=== PATIENT | female | born 1975 | race Caucasian/White ===

== ENCOUNTER 2017-12-10 20:36 | Emergency (ER) | payer BC ==
--- NOTE | 2017-12-10 23:37 | ER Document Report ---
HPI - HPI Pain Level: 3 Context: Patient is a 42-year-old female comes emergency department for chief complaint of cough, congestion, ear pain, chills, and pain across her chest with coughing episodes for the past 5 days. She denies smoking, she states she gets bronchitis frequently, she also has seasonal allergies and takes Claritin. 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 She is new to the area. She states that right now she is okay but when she lies flat she cannot stop coughing and she cannot sleep. Past Medical History - General Information source: Patient - Social History Smoking Status: Never Smoker Drug Abuse: None Lives with: Alone Family History: Reviewed & Not Pertinent Psychiatric Medical History: Reports: Hx Anxiety Surgical Hx: Negative - Immunizations Immunizations up to date: Yes Hx Diphtheria, Pertussis, Tetanus Vaccination: Yes Vertical Provider Document - CONSTITUTIONAL General Appearance: WD/WN, No Apparent Distress - INFECTION CONTROL TRAVEL OUTSIDE OF THE [place] IN LAST 30 DAYS: No - HEENT HEENT: Atraumatic, Normocephalic. negative: Normal ENT Exam - Patient with mild sinus congestion, slightly dull tympanic membranes bilaterally, otherwise unremarkable ENT exam, Pharyngeal Exudate, Pharyngeal Tenderness, Pharyngeal Erythema - NECK Neck: Normal Inspection - RESPIRATORY Respiratory: Breath Sounds Normal, No Respiratory Distress, Other - Episodes of persistent cough - CARDIOVASCULAR Cardiovascular: Regular Rate, Regular Rhythm - GI/ABDOMEN Gastrointestinal: Abdomen Soft, Abdomen Non-Tender - MUSCULOSKELETAL/EXTREMETIES Musculoskeletal/Extremeties: MAEW, FROM, Non-Tender - NEURO Level of Consciousness: Awake, Alert, Appropriate - DERM Integumentary: Warm, Dry, No Rash Course - Re-evaluation Re-evalutation: EKG and chest x-ray are both unremarkable. Patient with persistent coughing episodes consistent with bronchitis but no decreased breath sounds, wheezing, respiratory distress, or abnormal vital signs. Discussed results with patient, treatment recommendations, follow-up, and return precautions. Patient states satisfaction and agreement. - Vital Signs Vital signs: Temp Pulse Resp BP Pulse Ox 98 F 67 18 119/52 L 100 12/10/17 21:16 12/10/17 21:16 12/10/17 21:16 12/10/17 21:16 12/10/17 21:16 Discharge - Discharge Clinical Impression: Cough, Chills, Sinus congestion Ear pain Qualifiers: Laterality: bilateral Qualified Code(s): H92.03 - Otalgia, bilateral Condition: Stable Disposition: HOME, SELF-CARE Additional Instructions: Your chest x-ray and EKG do not show any concerning abnormalities. Your examination is consistent with bronchitis. Take prednisone as prescribed, take azithromycin as prescribed, take Tessalon during the day for cough if needed, use the syrup at night for cough if needed. Take Tylenol or ibuprofen for chills or body aches. Drink plenty of fluids and rest. Follow-up with primary care. Return if you worsen including difficulty breathing, spiking fever, or any other concerning or worsening symptoms Prescriptions: Hydrocodone Bit/Homatropine [Hycodan Syrup 5-1.5 mg/5 ml Ud Cup] 5 ml PO Q4HP PRN #120 ml PRN Reason: Benzonatate [Tessalon Perle 100 mg Capsule] 100 mg PO Q8HP PRN #20 cap PRN Reason: Azithromycin [Zithromax 250 mg Tablet] 250 mg PO ASDIR PRN #4 tablet PRN Reason: Prednisone [Deltasone 10 mg Tablet] 10 mg PO ASDIR PRN #21 tablet PRN Reason: Forms: Return to Work Referrals: CELESTE CRAWLEY FNP [Primary Care Provider] - Follow up as needed
--- NOTE | 2017-12-11 01:01 | RADIOLOGY REPORT (SQ) ---
EXAM DESCRIPTION: CHEST PA/LAT CLINICAL HISTORY: 42 years, Female, productive cough COMPARISON: None. NUMBER OF VIEWS: 2 FINDINGS: Normal lung volume, clear parenchyma, normal cardiac silhouette, and intact bony thorax. IMPRESSION: No acute cardiopulmonary findings.
[2017-12-11] MEDS ORDERED: PREDNISONE 20 MG TABLET PO ONE (01:32)
[2017-12-11] MEDS ORDERED: AZITHROMYCIN 250 MG TABLET PO ONE (01:34)
[2017-12-11 02:26] VITALS: BP 104/53
--- NOTE | 2017-12-11 07:51 | EKG REPORT ---
SEVERITY:- BORDERLINE ECG - SINUS RHYTHM NONSPECIFIC ST-T CHANGES ANTEROSEPTAL LEADS : Confirmed by: Rodolfo Galvin MD 11-Dec-2017 07:50:35
== END 2017-12-11 02:00 | disposition home or self-care (01) ==
LOC: ER 20:36
DX: H92.03 Otalgia, bilateral (principal); R05 Cough; R68.83 Chills (without fever); R09.81 Nasal congestion; H92.09 Otalgia, unspecified ear; R07.9 Chest pain, unspecified; I10 Essential (primary) hypertension
CPT/HCPCS: 93005; 99284; 71046; 93010; J7512

== ENCOUNTER 2020-07-26 14:10 | Emergency (ER) | payer BC, OTHER ==
--- NOTE | 2020-07-26 15:01 | ER Document Report ---
ED Medical Screen (RME) - General Chief Complaint: Headache Stated Complaint: NAUSEA Time Seen by Provider: 07/26/20 14:53 Primary Care Provider: CELESTE CRAWLEY FNP [Primary Care Provider] - Follow up as needed Mode of Arrival: Ambulatory Information source: Patient Notes: 44-year-old female presents to ED for migraine headache that is lasted for 3 to 4 weeks. She states she is on aimovig injections monthly she is also on Phenergan daily Zofran daily twice a day and Maxalt none of these have helped she has quit taking the Maxalt due to low blood pressure. She states she has had a constant headache nausea and dizziness for the last 3 to 4 weeks. She states she cannot get into her doctor until September. She also has Lyme's disease asthma cardiomyopathy and anemia. She states she is just tired and weak and dizzy over time and she needs to know what is going on. He states her entry writer told her to come to the emergency room. I have greeted and performed a rapid initial assessment of this patient. A comprehensive ED assessment and evaluation of the patient, analysis of test results and completion of medical decision making process will be conducted by an additional ED providers. TRAVEL OUTSIDE OF THE [place] IN LAST 30 DAYS: No - Related Data Allergies/Adverse Reactions: No Known Allergies Allergy (Verified 07/26/20 14:50) Home Medications: doxycycline. rizatriptan. losartan. [id number]. zofran. phenergan Past Medical History - Social History Chew tobacco use (# tins/day): No Frequency of alcohol use: None Drug Abuse: None Renal/ Medical History: Denies: Hx Peritoneal Dialysis Psychiatric Medical History: Reports: Hx Anxiety - Immunizations Immunizations up to date: Yes Hx Diphtheria, Pertussis, Tetanus Vaccination: Yes Physical Exam - Vital signs Vitals: Temp Pulse Resp BP Pulse Ox 98.2 F 56 L 16 122/57 L 100 07/26/20 14:45 07/26/20 14:45 07/26/20 14:45 07/26/20 14:45 07/26/20 14:45 Course - Vital Signs Vital signs: Temp Pulse Resp BP Pulse Ox 98.2 F 56 L 16 122/57 L 100 07/26/20 14:50 07/26/20 14:45 07/26/20 14:45 07/26/20 14:45 07/26/20 14:45 Doctor's Discharge - Discharge Referrals: CELESTE CRAWLEY FNP [Primary Care Provider] - Follow up as needed
[2020-07-26 15:27] LABS: ABSOLUTE BASOPHILS # (AUTO) 0.1 10^3/uL (0.0-0.2); ABSOLUTE EOSINOPHILS # (AUTO) 0.1 10^3/uL (0.0-0.6); ABSOLUTE LYMPHOCYTES (AUTO) 2.1 10^3/uL (0.5-4.7); ABSOLUTE MONOCYTES (AUTO) 0.5 10^3/uL (0.1-1.4); ABSOLUTE NEUT (AUTO) 2.1 10^3/uL (1.7-8.2); BASOPHILS % (AUTO) 1.1 % (0-2); EOSINOPHILS % (AUTO) 1.1 % (0-6); HEMOGLOBIN 13.9 g/dL (12.0-15.5); LYMPHOCYTES % (AUTO) 43.1 % (13-45); MEAN CORPUSCULAR HEMOGLOBIN 28.9 pg (27.0-33.4); MEAN CORPUSCULAR HGB CONC 34.7 g/dL (32.0-36.0); MEAN CORPUSCULAR VOLUME 83 fl (80-97); MONOCYTES % (AUTO) 9.8 % (3-13); PLATELET COUNT 250 10^3/uL (150-450); RED BLOOD COUNT 4.82 10^6/uL (3.72-5.28); SEGMENTED NEUTROPHILS % (AUTO) 44.9 % (42-78); TOTAL CELLS COUNTED % (AUTO) 100 %; WHITE BLOOD COUNT 4.8 10^3/uL (4.0-10.5)
[2020-07-26 15:31] LABS: APPEARANCE,URINE CLEAR; BILIRUBIN,URINE NEGATIVE (NEGATIVE); COLOR,URINE YELLOW; GLUCOSE, URINE NEGATIVE (NEGATIVE); KETONES,URINE NEGATIVE (NEGATIVE); LEUKOCYTE ESTERASE,URINE NEGATIVE (NEGATIVE); NITRITE,URINE NEGATIVE (NEGATIVE); PROTEIN,URINE NEGATIVE (NEGATIVE); URINE SPECIFIC GRAVITY 1.014; UROBILINOGEN,URINE NEGATIVE mg/dL (<2.0)
[2020-07-26 15:49] LABS: ALBUMIN 4.2 g/dL (3.5-5.0); ALKALINE PHOSPHATASE 107 U/L (38-126); ANION GAP 10 (5-19); ASPARTATE AMINO TRANSFERASE 29 U/L (14-36); BILIRUBIN,DIRECT 0.1 mg/dL (0.0-0.4); BILIRUBIN,TOTAL 0.3 mg/dL (0.2-1.3); BLOOD UREA NITROGEN 11 mg/dL (7-20); CALCIUM 9.3 mg/dL (8.4-10.2); CARBON DIOXIDE 26 mmol/L (22-30); CHLORIDE 104 mmol/L (98-107); GLUCOSE 90 mg/dL (75-110); TOTAL PROTEIN 7.6 g/dL (6.3-8.2)
[2020-07-26] MEDS ORDERED: DIPHENHYDRAMINE HCL 50 MG/ML VIAL IV ONE (19:46)
[2020-07-26] MEDS ORDERED: METOCLOPRAMIDE HCL INJ/PF 10 MG/2 ML SDV IV ONE (19:46)
[2020-07-26] MEDS ORDERED: FENTANYL CITRATE INJ/PF 100 MCG/2 ML AMPUL IV ONE (19:47)
[2020-07-26] MEDS ORDERED: RINGERS SOLUTION,LACTATED 1,000 ML IV ONE (19:47)
--- NOTE | 2020-07-26 19:48 | ER Document Report ---
Entered by ROBERT ECHAVARRIA SCRIBE 07/26/201944 Acting as scribe for:GUERO ARREOLA, DO ED General - General Chief Complaint: Headache Stated Complaint: NAUSEA Time Seen by Provider: 07/26/20 14:53 Primary Care Provider: CELESTE CRAWLEY FNP [NURSE PRACTITIONER] - Follow up as needed Mode of Arrival: Ambulatory Information source: Patient Notes: This 45 year old female patient presents to the emergency department today with complaints of a migraine headache for about the last month. Patient has a history of migraine headaches and is followed by neurology which she states she has reached out to but mentions that they cannot see her until September. She complains of nausea that is not responding to the Phenergan and Zofran that she is prescribed. Patient states she has felt lightheaded when she stands up occasionally. Patient denies any fevers. TRAVEL OUTSIDE OF THE [place] IN LAST 30 DAYS: No - Related Data Allergies/Adverse Reactions: No Known Allergies Allergy (Verified 07/26/20 14:50) Home Medications: doxycycline. rizatriptan. losartan. [id number]. zofran. phenergan Past Medical History - General Information source: Patient - Social History Smoking Status: Never Smoker Cigarette use (# per day): No Chew tobacco use (# tins/day): No Frequency of alcohol use: None Drug Abuse: None Lives with: Family Family History: Reviewed & Not Pertinent Patient has homicidal ideation: No Psychiatric Medical History: Reports: Hx Anxiety Surgical Hx: Negative - Immunizations Immunizations up to date: Yes Hx Diphtheria, Pertussis, Tetanus Vaccination: Yes Review of Systems - Review of Systems Constitutional: No symptoms reported EENT: No symptoms reported Cardiovascular: See HPI, Lightheaded Respiratory: No symptoms reported Gastrointestinal: See HPI, Nausea Genitourinary: No symptoms reported Female Genitourinary: No symptoms reported Musculoskeletal: No symptoms reported Skin: No symptoms reported Hematologic/Lymphatic: No symptoms reported Neurological/Psychological: See HPI, Headaches -: Yes All other systems reviewed and negative Physical Exam - Vital signs Vitals: Temp Pulse Resp BP Pulse Ox 98.2 F 56 L 16 122/57 L 100 07/26/20 14:45 07/26/20 14:45 07/26/20 14:45 07/26/20 14:45 07/26/20 14:45 - Notes Notes: Physical Exam: General: Alert, appears well. HEENT: Normocephalic. Atraumatic. PERRL. Extraocular movements intact. Orop harynx clear. Neck: Supple. Non-tender. Respiratory: No respiratory distress. Clear and equal breath sounds bilaterally. Cardiovascular: Regular rate and rhythm. Abdominal: Normal Inspection. Non-tender. No distension. Normal Bowel Sounds. Back: No gross abnormalities. Extremities: Moves all four extremities. Upper extremities: Normal inspection. Normal ROM. Lower extremities: Normal inspection. No edema. Normal ROM. Neurological: Normal cognition. AAOx4. Normal speech. Psychological: Normal affect. Normal Mood. Skin: Warm. Dry. Normal color. 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 She is better here after treatment and has local follow up. No fever or chills or rash. - Vital Signs Vital signs: Temp Pulse Resp BP Pulse Ox 98.2 F 56 L 16 122/57 L 100 07/26/20 14:50 07/26/20 14:45 07/26/20 14:45 07/26/20 14:45 07/26/20 14:45 - Laboratory Result Diagrams: 07/26/20 15:07 07/26/20 15:07 Laboratory results interpreted by me: 07/26/20 15:07 Urine Blood MODERATE H - Diagnostic Test Radiology reviewed: Image reviewed, Reports reviewed Discharge - Discharge Clinical Impression: Headache Qualifiers: Headache type: unspecified Headache chronicity pattern: chronic headache Intractability: not intractable Qualified Code(s): R51.9 - Headache, unspecif ied; G89.29 - Other chronic pain Condition: Stable Disposition: HOME, SELF-CARE Instructions: Antinausea Medication ([facility]), Headache ([facility]), Reglan ([facility]) Additional Instructions: See your doctor in follow up. Take your medicine as directed. Please return here for increased pain, persistent vomiting, other problems or concerns. Your cat scan here looks normal. Referrals: CELESTE CRAWLEY FNP [NURSE PRACTITIONER] - Follow up as needed I personally performed the services described in the documentation, reviewed and edited the documentation which was dictated to the scribe in my presence, and it accurately records my words and actions.
--- NOTE | 2020-07-26 21:43 | RADIOLOGY REPORT (SQ) ---
CT HEAD WITHOUT IV CONTRAST CLINICAL STATEMENT: butcher TECHNIQUE: Axial CT images from skull base to vertex without IV contrast. This exam was performed according to our departmental dose optimization program, and includes the following measures where applicable: automated exposure control, adjustment of the mAs and/or kVp according to patient size and/or exam, and an iterative reconstruction algorithm. COMPARISON: None. FINDINGS: There is no acute intracranial hemorrhage, mass, mass effect or abnormal extra-axial fluid collection. No evidence of an acute territorial infarct is identified. The ventricles are normal. Calvaria: The skull base and calvaria demonstrate no abnormality. In the soft tissues anterior to the left fore head is a 13 mm soft tissue nodule which is partially ossified. This may represent a large sebaceous cyst. Paranasal sinuses: Visualized portions of the orbits and paranasal sinuses are unremarkable. skull base: Unremarkable IMPRESSION: No acute intracranial abnormality.
[2020-07-26 23:09] VITALS: BP 111/58
--- OUTSIDE RECORDS SUMMARY | 2020-07-28 14:46 | XMS REPORT ---
:1975 Author Organization Replaced by [facility] Address [address] [place] [address] Care Team Providers Name Role Phone Du Rosas Primary Care Physician Unavailable Diony LAM Attending Clinician Unavailable Darwin Rosas MD Attending Clinician Unavailable MD Sánchez Garner Attending Clinician Unavailable MD Sánchez Garner Attending Clinician Unavailable MD Sánchez Garner Admitting Clinician Unavailable Allergies, Adverse Reactions, Alerts This patient has no known allergies or adverse reactions. Medications Ordered Filled Start Stop Current Ordering Indication Dosage Frequency Signature Comments Components Medication Medication Date Date Medication? Clinician (SIG) Name Name Doxycycline 2019-09 Yes Du Granados Q12H Doxycycli n Hyclate 100 1-02 Alison e Hyclate MG Oral 00:00: 100 MG Capsule 00 Oral Capsule TAKE 1 CAPSULE EVERY 12 HOURS UNTIL GONE. Quantity: 20 Refills: 0 Du Rosas MD Start : 17-Jul-2020 Active Butalbital- 2019- Yes Du Whaley l APAP-Caffei 0-16 Alison -APAP-Caf f ne 12:08: MD robbins 50-325-40 44 50-325-40 MG Oral MG Oral Tablet Tablet TAKE 1 TABLET BY MOUTH TWICE A DAY. DOSE DECREASE Quantity: 40 Refills: 0 Du Rosas MD Start : 0Active Ondansetron 2019-0 Yes Du Granados Ondansetr o 4 MG Oral 05-16 Alison n 4 MG Tablet 14:43: Oral Disintegrat 08 Tablet ing Disintegra ting TAKE 1 TABLET EVERY 8 hours as needed for nausea Quantity: 9 Refills: 3 Du Rosas MD Start : 16-May-2020 Active Pantoprazol 2019-0 Yes Richard Pantoprazo e Sodium 40 8-18 Garramone le Sodium MG Oral 14:20: D.O. 40 MG Oral Tablet 43 Tablet Delayed Delayed Release Release TAKE 1 TABLET BY MOUTH EVERY DAY Quantity: 90 Refills: 1 Garramone D.O. Richard Start : 0Active Butalbital- 2020-0 No Du Granados Q0.5D Butalbita l APAP-Caffei 7-27 Aliosn -APAP-Caf f ne 07:40: MD robbins 50-325-40 07 50-325-40 MG Oral MG Oral Tablet Tablet TAKE 1 TABLET BY MOUTH TWICE A DAY. DOSE DECREASE Quantity: 40 Refills: 0 Du Rosas MD Start : 0Active Pantoprazol 2019-0 No Richard Pantoprazo e Sodium 40 4-20 Garramone le Sodium MG Oral 13:58: D.O. 40 MG Oral Tablet 49 Tablet Delayed Delayed Release Release Take one by mouth daily Quantity: 30 Refills: 5 Garramone D.O.Alinkar Start : 0Active levoFLOXaci 2020-0 Yes Du Granados 1 Q0.5D levoFLOXa c n 500 MG 4-15 Towarnicky in 500 MG Oral Tablet 00:00: Oral 00 Tablet TAKE 1 TABLET TWICE DAILY Quantity: 14 Refills: 0 Du Rosas MD Start : 0Active Carvedilol 2020-0 Yes Du Granados Q0.5D Carvedilol 12.5 MG 2-18 Towarnicky 12.5 MG Oral Tablet 08:44: Oral 00 Tablet TAKE 1/2 BY MOUTH TWICE EVERY DAY Quantity: 90 Refills: 3 Du Rosas MD Start : 0Active Levothyroxi 2020-0 Yes Du Granados Levothyro x ne Sodium 2-18 Alison ine Sodium 25 MCG Oral 08:43: 25 MCG Tablet 26 Oral Tablet TAKE 1 TABLET BY MOUTH EVERY DAY Quantity: 90 Refills: 3 Du Rosas MD Start : 0Active Ondansetron 2019-0 No Du Granados 1 Ondansetr o 4 MG Oral 5-13 Towarnicky n 4 MG Tablet 11:31: Oral Disintegrat 43 Tablet ing Disintegra ting TAKE 1 TABLET EVERY 8 hours as needed for nausea Quantity: 30 Refills: 0 uD Rosas MD Start : 9Active Aimovig 140 Yes Mehdi Aimovig MG/ML - Diony LAM 140 MG/ML Subcutaneou 00:00: Subcutaneo s Solution 00 us Auto-inject Solution or Auto-injec tor 1 injection per month Quantity: 3 Refills: 1 Mehdi Vora MD Start : 9Active Milliliter Escitalopra Yes Du Granados Escitalop r m Oxalate - Alison monroy Oxalate 20 MG Oral 00:00: 20 MG Oral Tablet 00 Tablet TAKE 1 TABLET BY MOUTH EVERY DAY (REPLACE S BUSPAR AND ZOLOFT) Quantity: 90 Refills: 3 Du Rosas MD Start : 9Active Rizatriptan 2017-09 Yes Mehdi Rizatripta Benzoate 10 2- Diony abarca Benzoat e MG Oral 00:00: 10 MG Oral Tablet 00 Tablet TAKE 1 TABLET WITH HEADACHE ONSET, CAN REPEAT IN 2 HOURS TIME ONE. DO NOT EXCEED TWO PILLS IN 24 HOURS Quantity: 12 Refills: 5 Mehdi Vora MD Start : 8Active Promethazin 2017-09 Yes Mehdi Promethazi e HCl - 25 2- Diony stauffer HCl - MG Oral 00:00: 25 MG Oral Tablet 00 Tablet Take 1 tablet every 6 hours prn for CLEMONS/nausea Quantity: 60 Refills: 5 Mehdi Vora MD Start : 8Active Incruse Yes Irma Incruse Ellipta 04-02 George BRIDGES Ellipta 62.5 00:00: 62.5 MCG/INH 00 MCG/INH Inhalation Inhalation Aerosol Aerosol Powder Powder Breath Breath Activated Activated USE 1 INHALATION ONCE DAILY, NEEDED Refills: 1 Irma Saenz Start : 8Active 7 Each Pack Butalbital- No Du mix APAP-Caffei 03-27 Alison -ALDO-Caf f ne 00:00: MD robbins 50-325-40 00 50-325-40 MG Oral MG Oral Tablet Tablet TAKE 1 TABLET BY MOUTH TWICE A DAY. DOSE DECREASE Quantity: 40 Refills: 0 Du Rosas MD Start : 8Active Losartan No Du Granados 1 QD Losartan Potassium 5-24 Towarnicky Potassium 25 MG Oral 00:00: 25 MG Oral Tablet 00 Tablet TAKE 1 TABLET DAILY. Quantity: 90 Refills: 3 Du Rosas MD Start : 8Active ProAir HFA Yes Irma ProAir HFA 108 (90 5-24 George BRIDGES 108 (90 Base) 00:00: Base) MCG/ACT 00 MCG/ACT Inhalation Inhalation Aerosol Aerosol Solution Solution INHALE 1-2 PUFFS EVERY 4-6 HOURS NEEDED AND DIRECTED. Quantity: 1 Refills: 3 Irma Saenz Start : 8Active 8.5 GM Inhaler Losartan Yes Du Granados 1 QD Losartan Potassium 5-24 Towavanicky Potassium 25 MG Oral 00:00: 25 MG Oral Tablet 00 Tablet TAKE 1 TABLET DAILY. Quantity: 90 Refills: 3 Du Rosas MD Start : 8Active Problems Condition Condition Condition Status Onset Resolution Last Treatin g Comments Name Details Category Date Date Treatment Clinician Date Abnormal Abnormal Problem Active urine urine findings findings Microscopic Microscopic Problem Active hematuria hematuria Urinary Urinary Problem Active symptom or symptom or sign sign Encounter Encounter Problem Active for routine for routine gynecologic gynecologic al al examination examination with with Papanicolao Papanicolao u smear of u smear of cervix cervix Migraines Migraines Problem Active Screening Screening Problem Active for for cervical cervical cancer cancer Anxiety Anxiety Problem Active Anemia Anemia Problem Active Asthma Asthma Problem Active Cardiomyopa Cardiomyopa Problem Active thy in thy in diseases diseases classified classified elsewhere elsewhere Iron Iron Problem Active deficiency deficiency anemia anemia Gastric Gastric Problem Active ulcer ulcer Ear ache Ear ache Problem Active Procedures Procedure Date / Time Performed Performing Clinician Mariec e History of Sinus surgery History of section History of Colonoscopy History of Endoscopy Results This patient has no known results. Assessments Condition Name Status Diagnosis Date Treating Clinici an Migraines Active Microscopic hematuria Active Iron deficiency anemia Active Gastric ulcer Active Cardiomyopath in other disease Active Asthma Active Abnormal urine findings Active Abnormal urine findings Active Encounter for preventive health examination Active Urinary symptom or sign Active Lyme disease Active Anemia Active Migraines Active Microscopic hematuria Active Iron deficiency anemia Active Gastric ulcer Active Cardiomyopath in other disease Active Asthma Active Abnormal urine findings Active Encounter for preventive health examination Active Urinary symptom or sign Active Lyme disease Active Anemia Active Anxiety Active Migraines Active Microscopic hematuria Active Iron deficiency anemia Active Gastric ulcer Active Cardiomyopath in other disease Active Asthma Active Viral upper respiratory tract infection with Active cough Abnormal urine findings Active Encounter for preventive health examination Active Urinary symptom or sign Active Viral upper respiratory tract infection with Active cough Lyme disease Active Anemia Active Anxiety Active Migraines Active Microscopic hematuria Active Iron deficiency anemia Active Gastric ulcer Active Cardiomyopath in other disease Active Asthma Active Anemia Active Anxiety Active Iron deficiency anemia Active Gastric ulcer Active Asthma Active Cardiomyopathy in diseases classified Active elsewhere Gastric ulcer Active Anemia Active Anxiety Active Migraines Active Iron deficiency anemia Active Anemia Active Anxiety Active Iron deficiency anemia Active Gastric ulcer Active Asthma Active Encounter for routine gynecological Active examination with Papanicolaou smear of cervix Anemia Active Iron deficiency anemia Active Gastric ulcer Active Asthma Active Cardiomyopathy in diseases classified Active elsewhere Anemia Active Encounter for preventive health examination Active Urinary symptom or sign Active History of chest pain Active History of shortness of breath Active Lyme disease Active 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 Encounter for preventive health examination Active Urinary symptom or sign Active Lyme disease Active Shortness of breath Active Migraines Active Microscopic hematuria Active Iron deficiency anemia Active Gastric ulcer Active Chest pain Active Cardiomyopath in other disease Active Asthma Active Asthma Active Encounter for preventive health examination Active Urinary symptom or sign Active Lyme disease Active Shortness of breath Active Migraines Active Microscopic hematuria Active Iron deficiency anemia Active Gastric ulcer Active Chest pain Active Cardiomyopath in other disease Active Malignant neoplasm of unspecified part of Active SYSTEM left bronchus or lung Shortness of breath Active Chest pain Active Shortness of breath Active Cardiomyopath in other disease Active Cardiomyopath in other disease Active Chest pain Active Encounters Start End Encounter Type Admission Attending Care Care [facility] nter Date/Time Date/Time Type Clinicians Facility Department ID 2020-06-28 2020-06-28 Appointment; BETINA VoraTATYANA [id number] 08:45:00 08:45:00 Mehdi Vora MD 2020-02-11 2020-02-11 Appointment; BETINA LOUISTATYANA [id number] 08:40:00 08:40:00 Mammogram, [place] 2019-11-19 2019-11-19 Appointment; BETINA RosasTATYANA 2 [id number] 11:15:00 11:15:00 Du Rosas MD 2019-11-19 2019-11-19 Appointment; Diony [facility] [id number] 08:30:00 08:30:00 Mehdi Vora MD 2019-11-15 2019-11-15 Appointment; [facility] [id number] 08:00:00 08:00:00 Ector Bowles Garramone 2019-10-15 2019-10-15 Appointment; [facility] [id number] 15:30:00 15:30:00 Ultrasound Room 1, MD Jude 2019-09-24 2019-09-24 Appointment; [facility] [id number] 08:30:00 08:30:00 Irma Vazquez PA 2019-08-18 2019-08-18 Appointment; Alison [facility] 2 [id number] 15:45:00 15:45:00 Du Rosas MD 2019-08-16 2019-08-16 Appointment; [facility] [id number] 08:00:00 08:00:00 Ector Bowlesrammarino 2019-08-11 2019-08-11 [facility] 2 [id number] 08:30:00 08:30:00 Du Rosas MD 2019-08-03 2019-08-03 Appointment; [facility] [id number] 08:05:00 08:05:00 [facility] 2019-07-30 2019-07-30 Appointment; Alison [facility] 2 [id number] 08:30:00 08:30:00 Du Rosas MD 2019-07-29 2019-07-29 App[facility]ment; [facility] [id number] 08:45:00 08:45:00 Mehdi Vora MD 2019-01-22 2019-01-22 Appointment; [facility] [id number] 13:00:00 13:00:00 Mammogram, Jude 2019-01-07 2019-01-07 Appointment; Alison [facility] 2 [id number] 10:15:00 10:15:00 Du Rosas MD 2018-11-04 2018-11-04 Appointment; Diony [facility] [id number] 15:30:00 15:30:00 Mehdi Vora MD 2018-10-13 2018-10-13 Appointment; [facility] [id number] 11:30:00 11:30:00 Irma Vazquez PA 2018-10-08 2018-10-08 Appointment; Alison [facility] 2 [id number] 13:45:00 13:45:00 Du Rosas MD 2018-08-31 2018-08-31 Appointment; Diony [facility] [id number] 15:00:00 15:00:00 Mehdi Vora MD 2018-08-19 2018-08-19 Appointment; Alison [facility] 2 [id number] 11:00:00 11:00:00 Du Rosas MD 2018-08-03 2018-08-03 Appointment; [facility] [id number] 08:30:00 08:30:00 [facility], Unit 2018-07-27 2018-07-27 Appointment; [facility] [id number] 08:30:00 08:30:00 [facility] Infusion, Unit 2018-07-21 2018-07-21 Appointment; Alison [facility] 2 [id number] 10:00:00 10:00:00 Du Rosas MD 2018-07-03 2018-07-03 App[facility]ment; [facility] 2 [id number] 15:45:00 15:45:00 Du Rosas MD 2018-06-22 2018-06-22 Appointment; [facility] [id number] 09:00:00 09:00:00 Sadia Garner MD 2018-06-17 2018-06-17 O Sadia Garner [facility] 2 [id number] 16:20:00 16:20:00 Sadia Garner 2018-06-16 2018-06-16 Appointment; BETINA Vora [facility] [id number] 13:30:00 13:30:00 Mehdi Vora MD 2018-06-16 2018-06-16 Appointment; [facility] [id number] 08:45:00 08:45:00 Erik Brown MD 2018-05-25 2018-05-25 Appointment; [facility] [id number] 10:45:00 10:45:00 Sree Sy MD 2018-05-20 2018-05-20 [facility] 2 [id number] 14:45:00 14:45:00 Du Rosas MD 2018-05-13 2018-05-13 Appointment; [facility] [id number] 08:45:00 08:45:00 Erik Brown MD 2018-05-06 2018-05-06 Appointment; [facility] [id number] 13:30:00 13:30:00 Sadia Garner MD 2018-05-06 2018-05-06 Appointment; [facility] [id number] 12:45:00 12:45:00 MARTINE Roque 2018-05-06 2018-05-06 Appointment; [facility] [id number] 11:30:00 11:30:00 Pulmonary, Functions 2018-04-27 2018-04-27 Appointment; [facility] [id number] 09:30:00 09:30:00 Sree Sy MD 2018-04-24 2018-04-24 Appointment; [facility] [id number] 08:00:00 08:00:00 [facility] Jude Nuclear 3 2018-04-10 2018-04-10 Appointment; [facility] [id number] 08:45:00 08:45:00 Erik Brown MD Family History Family Member Diagnosis Comments Start Date Stop Date Unspecified Family history of malignant neoplasm of Other uterus Father Family history of Immunizations Ordered Immunization Filled Immunization Date Status Commen ts Refusal Reason Name Name Flulaval Quadrivalent 2019-08-11 Completed 0.5 ML Intramuscular 08:36:00 Suspension Prefilled Syringe Fluzone Quadrivalent 2018-07-21 Completed 0.5 ML Intramuscular 10:41:00 Suspension Prefilled Syringe Payers Payer Name Policy Type Policy Number Effective Date Expiration D ate Social History This patient has no known social history. Vital Signs This patient has no known vital signs.
== END 2020-07-26 23:13 | disposition home or self-care (01) ==
LOC: ER 14:10
DX: R51.9 Headache, unspecified (principal); G89.29 Other chronic pain; R11.0 Nausea; R42 Dizziness and giddiness; Z79.899 Other long term (current) drug therapy
CPT/HCPCS: 99285; 96361; 96374; 96375; 36415; 84703; 85025; 86140; 80053; 81001; 70450; J1200; J3010; J2765; J7120